=== PATIENT | female | born 1980 | race Caucasian/White ===

== ENCOUNTER 2024-11-01 10:01 | Outpatient (CLI) | payer BC | END 2024-11-01 10:02 | disposition home or self-care (01) | LOC: CSHMRI 10:01 | PROVIDERS: ATTEND Orthopaedic Surgery | DX: M23.91 Unspecified internal derangement of right knee (principal) ==

== ENCOUNTER 2024-11-01 10:44 | Outpatient (CLI) | payer BC | END 2024-11-01 10:45 | disposition home or self-care (01) | LOC: CSHMAMMO 10:44 | PROVIDERS: ATTEND Nurse Practitioner Family | DX: Z12.31 Encounter for screening mammogram for malignant neoplasm of breast (principal) | CPT/HCPCS: 77063; 77067 ==